=== PATIENT | female | born 1960 | race Caucasian/White ===

== ENCOUNTER 2017-07-04 08:10 | Outpatient (CLI) | payer OTHER ==
[~2017-07-04 08:10] MED LIST: HYZAAR 100-251 UDTAB; LATANOPROST2.5 ML OP; ZOCOR5 MG
== END 2017-07-04 08:13 | disposition home or self-care (01) ==
LOC: SONOGRAMA 08:10 → MAMO-SONO 09:15
DX: D27.0 Benign neoplasm of right ovary (principal); D27.1 Benign neoplasm of left ovary; N83.201 Unspecified ovarian cyst, right side; N83.202 Unspecified ovarian cyst, left side

== ENCOUNTER 2020-10-01 09:27 | Outpatient (CLI) | payer OTHER | END 2020-10-01 09:42 | disposition home or self-care (01) | LOC: SONOGRAMA 09:27 → MAMO-SONO 09:30 → SONOGRAMA 09:42 | PROVIDERS: ATTEND Obstetrics & Gynecology | DX: D27.0 Benign neoplasm of right ovary (principal); N83.201 Unspecified ovarian cyst, right side; C56.1 Malignant neoplasm of right ovary ==